=== PATIENT | male | born 1960 | race African-American/Black ===

== ENCOUNTER 2021-11-02 16:47 | Emergency (ER) | payer OTHER ==
[~2021-11-02] VITALS: Ht 172.7 cm; Wt 118.0 kg
[2021-11-02 16:53] VITALS: BP 162/71
[2021-11-02 17:01] VITALS: BP 159/64
[2021-11-02] MEDS ORDERED: METFORMIN500 M2 PO (17:02)
[2021-11-02 17:23] LABS: HEMATOCRIT 44.9 % (39.0-50.0); HEMOGLOBIN 14.7 g/dl (14.0-18.0); IMMATURE GRANULOCYTES 0.4 % (0.0-5.0); MEAN CELL VOLUME 87.4 fL CALC (80.0-100.0); MEAN CORPUSCULAR HGB 28.6 pG CALC (26.0-32.0); MEAN CORPUSCULAR HGB CONC 32.7 g/dL CAL (32.0-36.0); NEUT# 7.82 thou/uL (1.82-7.42); RED BLOOD COUNT 5.14 mill/uL (4.70-6.10); RED CELL DISTRI WIDTH 12.3 % (11.5-15.5)
[2021-11-02 17:50] LABS: ACT PARTIAL THROMBO TIME 22.3 SECONDS (20.0-32.5); PROTHROMBIN TIME 10.8 SECONDS (9.0-12.5)
[2021-11-02 17:51] LABS: ALBUMIN 4.6 g/dL (3.2-5.0); ALKALINE PHOSPHATASE 102 u/l (38-126); ANION GAP 11 (6-22 (CALC)); BILIRUBIN, TOTAL 0.5 mg/dL (0.0-1.4); BUN 14 mg/dL (8-23); BUN/CREATININE RATIO 12 (12-20 (CALC)); CARBON DIOXIDE 27 mmol/l (22-30); CHLORIDE 108 mmol/l (95-108); CREATININE 1.2 mg/dL (0.7-1.3); ETHYL ALCOHOL 0 mg/dl (0-30); GFR > 60 ML/MIN (>=60 (CALC)); GFR FOR AFR.AMER. > 60 ML/MIN (>=60 (CALC)); LIPASE 38 u/l (23-300); POTASSIUM 4.2 mmol/l (3.5-5.1); SGOT/AST 33 u/l (19-48); SODIUM 141 mmol/l (137-146); TOTAL PROTEIN 7.9 g/dL (6.3-8.2)
[2021-11-02] MEDS ORDERED: HYDROCO/APAP1 TA9 PO (18:57)
[2021-11-02 19:09] VITALS: BP 145/86
[2021-11-02 19:12] VITALS: BP 145/86
[2021-11-02 19:14] LABS: URINE BILIRUBIN - DIPSTICK NEGATIVE (NEGATIVE); URINE BLOOD DIPSTICK TRACE-INTACT (NEGATIVE); URINE COLOR YELLOW; URINE GLUCOSE - DIPSTICK NEGATIVE (NEGATIVE); URINE KETONE NEGATIVE (NEGATIVE); URINE LEUK ESTERASE NEGATIVE (NEGATIVE); URINE NITRITE - DIPSTICK NEGATIVE (Negative); URINE PROTEIN - DIPSTICK TRACE mg/dL (NEG-TRACE); URINE SPECIFIC GRAVITY >=1.030; URINE UROBILINOGEN - DIPSTICK 0.2 E.U./dL (0.2)
== END 2021-11-02 19:31 | disposition home or self-care (01) | DRG 605 ==
LOC: ED 16:47
DX: S00.01XA Abrasion of scalp, initial encounter (principal); S40.211A Abrasion of right shoulder, initial encounter; S40.811A Abrasion of right upper arm, initial encounter; S30.0XXA Contusion of lower back and pelvis, initial encounter; S60.222A Contusion of left hand, initial encounter; V28.4XXA Motorcycle driver injured in noncollision transport accident in traffic accident, initial encounter